=== PATIENT | male | born 1995 | race Hispanic/Latino ===

== ENCOUNTER 2020-01-02 15:50 | Emergency (ER) | payer SELFPAY ==
--- OUTSIDE RECORDS SUMMARY | 2020-01-02 15:52 | XMS REPORT | Continuity of Care Document ---
:1995 Author Organization [facility] t Address [address] [place] [address] Care Team Providers Name Role Phone Unavailable Unavailable Unavailable Payers Payer Name Policy Type Policy Number Effective Date Expiration Date S ource Problems This patient has no known problems. Allergies, Adverse Reactions, Alerts Allergy Allergy Status Severity Reaction(s) Onset Inactive Treating Comm ents Source Name Type Date Date Clinician No Known DA Active U 2017-02 [facility] Medications This patient has no known medications. Procedures This patient has no known procedures. Results This patient has no known results.
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
[2020-01-02 18:01] VITALS: BP 123/87; TEMP 98.2; O2SAT 100
== END 2020-01-02 17:48 | disposition home or self-care (01) ==
LOC: ER 15:50
DX: S29.012A Strain of muscle and tendon of back wall of thorax, initial encounter (principal); V49.49XA Driver injured in collision with other motor vehicles in traffic accident, initial encounter
CPT/HCPCS: 74177; 99283; Q9967